=== PATIENT | female | born 2000 | race Two or more races ===

== ENCOUNTER 2022-11-16 18:12 | Inpatient (IN) | payer OTHER ==
[~2022-11-16] VITALS: Ht 152.4 cm; Wt 48.5 kg
[2022-11-16] MEDS ORDERED: PRENATAL TABLE1 EAC1 PO (21:34)
== END 2022-11-22 13:22 | disposition home or self-care (01) | DRG 768 ==
LOC: OBS/DEL 18:12 → LDR 11-17 09:15 → OB/GYN 11-19 11:28
PROVIDERS: ADMIT Obstetrics & Gynecology; ATTEND Obstetrics & Gynecology
PROC: 4A1HXCZ Monitoring of Products of Conception, Cardiac Rate, External Approach (ICD-10-PCS; 2022-11-17)
PROC: 10E0XZZ Delivery of Products of Conception, External Approach (ICD-10-PCS; principal; 2022-11-20)
PROC: 0DQP0ZZ Repair Rectum, Open Approach (ICD-10-PCS; 2022-11-20)
PROC: 0W8NXZZ Division of Female Perineum, External Approach (ICD-10-PCS; 2022-11-20)
DX: O70.3 Fourth degree perineal laceration during delivery (principal); Z37.0 Single live birth; O60.14X0 Preterm labor third trimester with preterm delivery third trimester, not applicable or unspecified; Z3A.36 36 weeks gestation of pregnancy; Z20.822 Contact with and (suspected) exposure to COVID-19

== ENCOUNTER → 2024-03-02 09:58 | Outpatient (CLI) | payer OTHER ==
[~2024-03-02 09:58] MED LIST: PRENATAL TABLE1 EAC1 PO
== END | disposition home or self-care (01) ==
LOC: PRENATAL 09:58
PROVIDERS: ATTEND Obstetrics & Gynecology Maternal & Fetal Medicine
DX: O26.849 Uterine size-date discrepancy, unspecified trimester (principal); O60.00 Preterm labor without delivery, unspecified trimester; Z3A.28 28 weeks gestation of pregnancy

== ENCOUNTER 2024-03-23 10:10 | Outpatient (CLI) | payer OTHER | END 2024-03-23 10:11 | disposition home or self-care (01) | LOC: PRENATAL 10:10 | PROVIDERS: ATTEND Obstetrics & Gynecology Maternal & Fetal Medicine | DX: O26.849 Uterine size-date discrepancy, unspecified trimester (principal); O36.5990 Maternal care for other known or suspected poor fetal growth, unspecified trimester, not applicable or unspecified; O36.8199 Decreased fetal movements, unspecified trimester, other fetus; Z3A.31 31 weeks gestation of pregnancy ==

== ENCOUNTER 2024-04-13 09:42 | Outpatient (CLI) | payer OTHER | END 2024-04-13 09:43 | disposition home or self-care (01) | LOC: PRENATAL 09:42 | PROVIDERS: ATTEND Obstetrics & Gynecology Maternal & Fetal Medicine | DX: O26.843 Uterine size-date discrepancy, third trimester (principal); O36.8130 Decreased fetal movements, third trimester, not applicable or unspecified; O36.5930 Maternal care for other known or suspected poor fetal growth, third trimester, not applicable or unspecified; O99.013 Anemia complicating pregnancy, third trimester; Z3A.34 34 weeks gestation of pregnancy ==

== ENCOUNTER 2024-04-30 10:18 | Outpatient (CLI) | payer OTHER | END 2024-04-30 10:19 | disposition home or self-care (01) | LOC: PRENATAL 10:18 | PROVIDERS: ATTEND Obstetrics & Gynecology Maternal & Fetal Medicine | DX: O26.849 Uterine size-date discrepancy, unspecified trimester (principal); O36.8199 Decreased fetal movements, unspecified trimester, other fetus; O36.5990 Maternal care for other known or suspected poor fetal growth, unspecified trimester, not applicable or unspecified; O99.019 Anemia complicating pregnancy, unspecified trimester; Z3A.33 33 weeks gestation of pregnancy ==

== ENCOUNTER 2024-05-09 07:56 | Inpatient (IN) | payer OTHER ==
[2024-05-09] VITALS (9 sets, daily range): BP systolic 110–142; BP diastolic 60–76; O2SAT 99
[~2024-05-09] VITALS: Ht 157.5 cm; Wt 47.6 kg
[2024-05-09] MEDS ORDERED: IRON325 MG PO (09:43)
[2024-05-09 09:59] LABS: PH,URINE 6.5 (5.0-8.0); URINE APPEARANCE Clear; URINE BILIRRUBIN Negative (NEGATIVE); URINE BLOOD Negative; URINE COLOR Yellow; URINE GLUCOSE Negative (NEGATIVE); URINE KETONE Negative (NEGATIVE); URINE LEUKOCYTE Small; URINE NITRATE Negative; URINE PROTEIN Negative (NEGATIVE)
[2024-05-09 10:01] LABS: HEMATOCRIT 32.1 % (36.0-45.00); HEMOGLOBIN 10.3 g/dL (12.0-15.00); MEAN CELL VOLUME 74.1 fL (80.00-100.00); MEAN CORPUSCULAR HEMOGLOBIN 23.9 pg (27.00-32.0); MEAN CORPUSCULAR HGB CONC 32.2 g/dl (32.0-36.0); PLATELET COUNT 228 K/uL (150-450); RED BLOOD COUNT 4.33 M/uL (4.00-6.00)
[2024-05-09 10:02] LABS: URINE BACTERIA 623.5 uL (0.0-1933); URINE EPITHELIAL CELLS 19.1 uL (0.0-38.8); URINE RBC 0.6 uL (0.0-20.8); URINE WBC 13.1 uL (0.0-23.2)
[2024-05-09 10:27] LABS: INR 0.94; PARTIAL THROMBOPLASTIN TIME 26.5 SECONDS (22.0-34.0); PROTHROMBIN TIME 10.3 SECONDS (9.0-11.5)
[2024-05-09] MEDS ORDERED: OXYTOCIN 20 UNITS/500ML RL PIGGYBAG IV SCH (11:15)
[2024-05-09] MEDS ORDERED: MEPERIDINE HCL/PF 25 MG/ML VIAL IV STA (14:26)
[2024-05-09] MEDS ORDERED: PROMETHAZINE HCL 25 MG/ML AMPUL IV STA (14:26)
[2024-05-09] MEDS ORDERED: PROMETHAZINE HCL 25 MG/ML AMPUL ONE (14:34)
[2024-05-09] MEDS ORDERED: CHLORHEXIDINE GLUCONATE 120 ML BOTTLE TOP ONE (16:06)
[2024-05-09] MEDS ORDERED: OXYTOCIN 20 UNITS/1000ML RL PIGGYBAG IV ONE (16:06)
[2024-05-09] MEDS ORDERED: ERYTHROMYCIN BASE OPHT 1GM EACH TUBE OP ONE ×2 (16:06→16:30)
[2024-05-09] MEDS ORDERED: LIDOCAINE HCL 1% 10ML VIAL ONE (16:07)
[2024-05-09] MEDS ORDERED: LIDOCAINE HCL 1% 10ML VIAL IJ ONE (16:30)
[2024-05-09] MEDS ORDERED: ACETAMINOPHEN 500 MG GEL..CAP PO PRN (19:00)
[2024-05-09] MEDS ORDERED: CHLORHEXIDINE GLUCONATE 120 ML BOTTLE TP SCH (19:00)
[2024-05-09] MEDS ORDERED: OXYTOCIN 1,000 ML IV SCH (19:00)
[2024-05-09 23:25] LABS: HEMATOCRIT 29.5 % (36.0-45.00); HEMOGLOBIN 9.6 g/dL (12.0-15.00); MEAN CELL VOLUME 72.3 fL (80.00-100.00); MEAN CORPUSCULAR HEMOGLOBIN 23.5 pg (27.00-32.0); MEAN CORPUSCULAR HGB CONC 32.5 g/dl (32.0-36.0); PLATELET COUNT 203 K/uL (150-450); RED BLOOD COUNT 4.07 M/uL (4.00-6.00); RED CELL DISTRIBUTION WIDTH 17.8 % (11.5-14.5)
[2024-05-10 02:00] VITALS: BP 108/71
[2024-05-10 08:00] VITALS: BP 110/72
[2024-05-10] MEDS ORDERED: PNV,CALCIUM 72/IRON/FOLIC ACID 1 TAB TABLET PO SCH (09:00)
[2024-05-10 16:00] VITALS: BP 116/76
[2024-05-11] VITALS: BP 110/74
[2024-05-11 08:00] VITALS: BP 113/82
[2024-05-11 16:00] VITALS: BP 125/83
== END 2024-05-11 16:29 | disposition home or self-care (01) | DRG 807 ==
LOC: LDR 07:56 → OB/GYN 16:59
PROVIDERS: ADMIT Obstetrics & Gynecology; ATTEND Obstetrics & Gynecology
PROC: 10E0XZZ Delivery of Products of Conception, External Approach (ICD-10-PCS; principal; 2024-05-09)
PROC: 4A1HXCZ Monitoring of Products of Conception, Cardiac Rate, External Approach (ICD-10-PCS; 2024-05-09)
DX: O80 Encounter for full-term uncomplicated delivery (principal); Z37.0 Single live birth; Z3A.38 38 weeks gestation of pregnancy; Z20.822 Contact with and (suspected) exposure to COVID-19